=== PATIENT | male | born 1975 | race Asian ===

== ENCOUNTER 2021-07-21 13:15 | Outpatient (CLI) | payer BC, OTHER | END 2021-07-21 20:51 | disposition home or self-care (01) | LOC: RAD 13:15 | PROVIDERS: ATTEND Nurse Practitioner Primary Care | DX: Z20.822 Contact with and (suspected) exposure to COVID-19 (principal) ==

== ENCOUNTER 2023-10-29 15:53 | Outpatient (CLI) | payer BC ==
[2023-10-29 16:18] LABS: POTASSIUM 4.3 mmol/L (3.6-5.2)
== END 2023-10-29 20:22 | disposition home or self-care (01) ==
LOC: LABW 15:53
PROVIDERS: ATTEND Nurse Practitioner Family
DX: R10.11 Right upper quadrant pain (principal)
CPT/HCPCS: 36415; 80053; 82150; 83690